=== PATIENT | female | born 1965 | race Caucasian/White ===

== ENCOUNTER 2023-10-25 12:03 | Outpatient (AMB) | payer OTHER, SELFPAY ==
--- NOTE | 2023-10-25 12:19 | HO.NEPHOV_ITS ---
Vital Signs 10/25/23 12:22 Height 5 ft 7 in Weight 316 lb 4 oz BMI 49.5 BP 110/74 Blood Pressure Location Lt brachial Position Sitting Pulse 65 Pulse Source Pulse Oximeter Pulse Oximetry (%) 97 Oxygen Delivery Method Room Air Intake Visit Reasons: Previous pt/ Conf Senior Controls Analyst Required: No Accompanied by: Self / Same As Patient Allergies No Known Allergies Allergy (Verified 10/25/23 10:13) HPI Comments Details: Yasmeen was in the office in follow-up of her hypertension. She has lost some weight. She has no edema now. She is obesity and is trying to lose weight by weight watchers. Her bilateral lower extremity swelling is under good control on bumetanide. 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 She had undergone surgery and radiation in the past. She recently had her losartan changed to olmesartan but had gone back losartan again. She has cut down salt in the food. She does not have any shortness of breath, orthopnea, paroxysmal nocturnal dyspnea, nausea, vomiting or diarrhea. There were no other systemic complaints at the time of this office visit. [facility] Medical History (Updated 10/25/23 @ 12:51 by Arnav Purcell MD) Hypertension Social History (Updated 10/25/23 @ 12:27 by Katina Wu MA) Alcohol intake: never Patient Tobacco Use Status: Never used Tobacco Review of Systems Const All systems reviewed & are unremarkable except as noted in HPI and below Physical Exam Vital Signs: Last Vital Signs Pulse 65 10/25/23 12:22 BP 110/74 10/25/23 12:22 Pulse Ox 97 10/25/23 12:22 Oxygen Delivery Method Room Air 10/25/23 12:22 BMI result Body Mass Index 49.5 Const General: comfortable and no acute distress Orientation/consciousness: patient oriented x3 HEENT Head: Yes normocephalic Mouth: Normal oral and palatal mucosa present Eyes EOM: EOMs intact bilaterally Neck Neck: Yes supple Resp Auscultation: clear to auscultation bilaterally Cardio Jugular venous distension: no JVD Rate: regular rate GI Palpation (GI): Soft to palpation Auscultation: normal bowel sounds General: Yes no CVA tenderness Back/Spine/Pelvis Back: no CVA tenderness Skin General skin exam: no rashes or lesions noted Neuro General: patient oriented x3 and moves all extremities Extrem General: Yes no pedal edema Results Reviewed Nephrology Results: No Data to Display Assessment & Plan Assessment & Plan (1) Hypertension: Code(s): I10 - Essential (primary) hypertension Category: Medical Qualifiers: Hypertension type: primary hypertension Qualified Code(s): I10 - Essential (primary) hypertension Plan Yasmeen has longstanding hypertension. Her Blood pressure is currently well controlled on current medication regimen. She is a diabetic. Her last hemoglobin A1c was under 7. She has not known to have any proteinuria. Her volume status is optimal on current dose of diuretics. She did not tolerate Jardiance. Her recent electrolytes and renal functions are at baseline. She will benefit from more weight loss. I did not make any medication changes today. I encouraged her to maintain good hydration. She avoids nonsteroidal anti-inflammatories. Follow-up lab work ordered. Answered all questions. Medications refilled. Orders: Orders Blood Urea Nitrogen Today I10 - Essential (primary) hypertension Creatinine Today I10 - Essential (primary) hypertension Electrolytes Today I10 - Essential (primary) hypertension Calcium Today I10 - Essential (primary) hypertension Medications: New carvedilol 12.5 mg orally 3 tablets a day( Take on e tab AM and 2 tabs PM); 270 tabs 3RF losartan 100 mg PO DAILY 90 days 90 tabs 3RF Coding Level of Care Code Est Pt Level 4 (37906) Diagnoses Primary hypertension I10 Hypertension type: primary hypertension
[2023-10-25 12:22] VITALS: BP 110/74; PULSE 65; O2SAT 97; BMI 49.5
== END 2023-10-25 12:56 | disposition home or self-care (01) ==
PROVIDERS: PCP Family Medicine; Visit Provider Internal Medicine Nephrology
DX: I10 Essential (primary) hypertension (principal)
CPT/HCPCS: 99214

== ENCOUNTER → 2023-10-25 12:03 | Outpatient (BNVA) | payer OTHER, SELFPAY | PROVIDERS: PCP Family Medicine; Visit Provider Internal Medicine Nephrology ==

== ENCOUNTER 2024-07-10 13:19 | Outpatient (AMB) | payer OTHER, SELFPAY ==
--- NOTE | 2024-07-10 13:29 | HO.NEPHOV ---
Vital Signs 07/10/24 13:40 Height 5 ft 7 in Weight 294 lb 6 oz BMI 46.1 BP 130/70 Blood Pressure Location Lt brachial Position Sitting Pulse 54 Pulse Source Pulse Oximeter Pulse Oximetry (%) 97 Oxygen Delivery Method Room Air Intake Visit Reasons: 6 mon follow up-[facility] Game Manager Required: No Accompanied by: Self / Same As Patient Allergies No Known Allergies Allergy (Verified 07/10/24 13:42) HPI Comments Details: Yasmeen was in the office in follow-up of her hypertension. She has lost some weight. She has no edema now. She is obesity and is trying to lose weight by weight watchers. Her bilateral lower extremity swelling is under good control on bumetanide. 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 She had undergone surgery and radiation in the past. She recently had her losartan changed to olmesartan but had gone back losartan again. She has cut down salt in the food. She does not have any shortness of breath, orthopnea, paroxysmal nocturnal dyspnea, nausea, vomiting or diarrhea. There were no other systemic complaints at the time of this office visit. [facility] Medical History (Updated 02/21/24 @ 14:55 by Sabrina Carmona) Hypertension Social History (System 02/21/24 @ 14:55 by Sabrina Carmona) Alcohol intake: never Patient Tobacco Use Status: Never used Tobacco Review of Systems Const All systems reviewed & are unremarkable except as noted in HPI and below Physical Exam Const General: comfortable and no acute distress Orientation/consciousness: patient oriented x3 HEENT Head: Yes normocephalic Mouth: Normal oral and palatal mucosa present Eyes EOM: EOMs intact bilaterally Neck Neck: Yes supple Resp Auscultation: clear to auscultation bilaterally Cardio Jugular venous distension: no JVD Rate: regular rate GI Palpation (GI): Soft to palpation Auscultation: normal bowel sounds General: Yes no CVA tenderness Back/Spine/Pelvis Back: no CVA tenderness Skin General skin exam: no rashes or lesions noted Neuro General: patient oriented x3 and moves all extremities Extrem General: Yes no pedal edema Results Reviewed Nephrology Results: No Data to Display Assessment & Plan Assessment & Plan (1) Hypertension: Code(s): I10 - Essential (primary) hypertension Category: Medical Qualifiers: Hypertension type: primary hypertension Qualified Code(s): I10 - Essential (primary) hypertension Plan Yasmeen has longstanding hypertension. Her Blood pressure is currently well controlled on current medication regimen. She is a diabetic. Her last hemoglobin A1c was under 7. She has not known to have any proteinuria. Her volume status is optimal on current dose of diuretics. She did not tolerate Jardiance. Her recent electrolytes and renal functions are at baseline. She will benefit from more weight loss. I did not make any medication changes today. I encouraged her to maintain good hydration. She avoids nonsteroidal anti-inflammatories. Follow-up lab work ordered. Answered all questions. Orders: Orders Calcium Today I10 - Essential (primary) hypertension Electrolytes Today I10 - Essential (primary) hypertension Creatinine Today I10 - Essential (primary) hypertension Electrolytes 6 Months I10 - Essential (primary) hypertension Calcium 6 Months I10 - Essential (primary) hypertension Electrolytes 1 Year I10 - Essential (primary) hypertension Blood Urea Nitrogen 1 Year I10 - Essential (primary) hypertension Blood Urea Nitrogen Today I10 - Essential (primary) hypertension Blood Urea Nitrogen 6 Months I10 - Essential (primary) hypertension Creatinine 6 Months I10 - Essential (primary) hypertension Creatinine 1 Year I10 - Essential (primary) hypertension Coding Level of Care Code Est Pt Level 4 (96663) Diagnoses Primary hypertension I10 Hypertension type: primary hypertension
[2024-07-10 13:40] VITALS: BP 130/70; PULSE 54; O2SAT 97; BMI 46.1
--- OUTSIDE RECORDS SUMMARY | 2024-07-10 15:51 | XMS_ITS | Clinical Summary ---
Author Organization [facility] Address [address] [facility] [address] [place] [address] Phone Care Team Providers Care Medical Office Scheduler Name Role Phone Germán Conte DO Primary Care Provider [phone] Allergies No known active allergies Medications calcium carbonate-vitami n D 600-400 MG-UNIT per tablet Take 1 tablet by mouth 1 (one) time each day Active Multiple Vitamin (MULTIVITAMIN ADULT PO) Take 1 tablet by mouth 1 (one) time each day Active B Complex Vitamins (VITAMIN B COMPLEX PO) Take 1 tablet by mouth 1 (one) time each day Active Elastic Bandages & Supports (Medical Compression Stockings) misc 1 packet by Other route 9 Active omeprazole (PriLOSEC) [address] capsule Take 40 mg by mouth 1 (one) time each day Active alpha tocopherol (VITAMIN E) 400 units capsule Take 1 capsule by mouth 1 (one) time each day Active glipiZIDE (GLUCOTROL) 10 MG tablet Take 10 mg by mouth 2 (two) times a day before meals Active metFORMIN (GLUCOPHAGE) 500 MG tablet Take 500 mg by mouth 1 (one) time each day with breakfast 500mg Am and Pm Active carvedilol (COREG) 12.5 MG tablet 1 Tab {PO in Am and 2 tabs in PM 270 tablet 3 3 Active cholestyramine (QUESTRAN) 4 g packet 3 Active pancrelipase, Zin-Wanc-Imgj, (Creon) 27952-72400 units capsule 5 Active bumetanide (BUMEX) 2 MG tablet Take 2 mg by mouth in the morning and 2 mg in the evening. Am and PM . Active olmesartan (Benicar) 40 MG tablet Take 1 tablet (40 mg total) by mouth 1 (one) time each day 90 tablet 3 4 Active Active Problems Problem Noted Date Diagnosed Date Hypertension 10/11/2021 Type 2 diabetes mellitus 10/06/2021 Uncontrolled type 2 diabetes mellitus 10/06/2021 Overview (02/12/2024): Replacing diagnoses that were inactivated after the 02/12/24 Regulatory Import Edema 10/01/2020 Essential hypertension 10/01/2020 Resolved Problems Problem Noted Date Diagnosed Date Resolved Date Anxiety 10/06/2021 10/06/2021 Left ventricular hypertrophy 10/06/2021 10/06/2021 Pancreatic insufficiency 10/06/2021 Severe obesity 10/06/2021 10/06/2021 Edema of lower extremity 10/01/2020 Migraine 10/01/2020 10/04/2020 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 Immunizations Name Administration Dates Next Due Influenza, Unspecified 02/19/2020 Pfizer SARS-COV-2 01/08/2021,06/06/2020,05/16/19 21 Family History Medical History Relation Comments Heart disease Mother Hypertension Mother Heart disease Sibling Relation Status Comments Father Mother Alive Sibling Social History Tobacco Use Types Packs/Day Years Used Date Smoking Tobacco: Never Smokeless Tobacco: Never Tobacco Cessation:Counseling Given: Not Answered Alcohol Use Standard Drinks/Week Comments No 0 (1 standard drink = 0.6 oz pur e alcohol) Comments Unknown Sex and Gender Information Value Date Recorded Sex Assigned at Not on file Legal Sex Female 4:51 PM EST Gender Identity Not on file Sexual Orientation Not on file Last Filed Vital Signs Vital Sign Reading Time Taken Comments Blood Pressure 138/70 05/28/2023 4:05 PM EST Pulse 60 05/28/2023 4:05 PM EST Temperature - - Respiratory Rate - - Oxygen Saturation 97% 05/28/2023 4:05 PM EST Inhaled Oxygen Concentration - - Weight 144 kg (317 lb) 05/28/2023 4:05 PM EST Height 170.2 cm (5' 7 ) 09/01/2019 12:00 PM EDT Body Mass Index 49.65 09/01/2019 12:00 PM EDT Plan of Treatment Health Maintenance Due Date Last Done Comments Breast Cancer Screening 1964 Pneumococcal Vaccine: Pediatrics (0 to 5 Years) and At-Risk Patients (6 to 64 Years) (1 of 2 - PCV) 1970 Colorectal Cancer Screening: Annual FOBT 2013 Colorectal Cancer Screening: Colonoscopy 2013 Colorectal Cancer Screening: Sigmoidoscopy 2013 Diabetes: Hemoglobin A1C 08/25/2021 02/04/2019 Diabetes: Ophthalmology Exam 08/25/2021 Diabetes: Pedal Pulse Checked 08/25/2021 Diabetes: Sensory Foot Exam 08/25/2021 Diabetes: Visual Foot Exam 08/25/2021 Influenza Vaccine (#1) 2024 2, 02/17/2021, 02/19/2020, Additional history exists Hepatitis B Vaccine Aged Out No longe r eligible based on patient's age to complete this topic Procedures Procedure Name Priority Date/Time Associated Diagnosis Comments BLOOD PANEL (HC) Routine 02/04/2019 12:0 0 AM EDT from Last 3 Months or Most Recently Relevant to Health Maintenance Results * (ABNORMAL) Blood Panel (02/04/2019 12:00 AM EDT) Creatinine 0.8 0.70 - 1.30 mg/dl [facility] Hemoglobin A1C 6.7(H) <5 % [facility] BUN 16 9 - 20 mg/dl [facility] eGFR Non- 84 >60 ml/min [facility] Cholesterol 166 <200 mg/dl [facility] LDL,Direct 79 <130 mg/dl [facility] Hematocrit 42.7 38 - 50 % [facility] Sodium 142 137 - 145 mmol/L [facility] Carbon Dioxide (CO2) 29 22 - 30 mmol/L [facility] eGFR 97 >60 ml/min [facility] Hgb 13.7 13.0 - 16.5 g/dl [facility] Platelets 255 140 - 440 k/uL [facility] Potassium 4.3 3.5 - 5.1 mmol/L [facility] Calcium 9.6 8.4 - 10.2 mg/dl [facility] Triglycerides 195(H) <150 mg/dl [facility] HDL 48 >40 mg/dl [facility] 02/04/2019 us [facility] [id number] LICITED RESULTS Final Result [facility] from Last 3 Months or Most Recently Relevant to Health Maintenance Insurance AETNA AET[employer] Care Teams Medical Office Scheduler Relationship Specialty Start Date End Date Germán Conte DO [address] [place] [address] PCP - General 05/24/20
--- OUTSIDE RECORDS SUMMARY | 2024-07-10 15:51 | XMS_ITS | Encounter Summary ---
Author Organization [facility] Address [address] [place] [address] Care Team Providers Care Model Maker Fiberglass Name Role Phone Germán Conte MD Primary Care Provider Encounter Details Date Type Department Care Team (Late st Contact Info) Description 12/09/2020 Scanned Document [facility] Radiation Oncology [address] [place] [address] Provider, MD Amanda [address] [place] [address] Social History Tobacco Use Types Packs/Day Years Used Date Smoking Tobacco: Former Cigarettes Q uit: 1988 Smokeless Tobacco: Never Alcohol Use Standard Drinks/Week Comments Yes 0 (1 standard drink = 0.6 oz pur e alcohol) 1x/month Sex and Gender Information Value Date Recorded Sex Assigned at Not on file Gender Identity Not on file Sexual Orientation Not on file documented as of this encounter Plan of Treatment Not on file documented as of this encounter Visit Diagnoses Not on filedocumented in this encounter Care Teams Model Maker Fiberglass Relationship Specialty Start Date End Date Germán Conte MD [address] [place] [address] PCP - General Psychiatry, General 08/13/18 documented as of this encounter
--- OUTSIDE RECORDS SUMMARY | 2024-07-10 15:51 | XMS_ITS | Patient Health Record ---
Author Organization [facility] Address [address] [facility] [address] [address] [place] [address] Support Name Relationship Address Phone YENYSALVATORE ALCOCER Guarantor Unknown [phone] Reason For Referral No Information Medications Medication SIG (Take, Route, Frequency, Duration) Notes Start Date End Date Status Norvasc 5MG 1 ORAL daily for -3 [facility]- 12/04/2011 Active Losartan Potassium-HCTZ 100/25MG 1 ORAL daily for -3 [facility]- 07/25/2011 Active amLODIPine Besylate 5MG 1 ORAL daily for -3 [facility]- 2011 Active Problems Problem Type SNOMED Code ICD Code Onset Dates Problem Status W/U Status Risk Notes Problem Obesity (380551396) Obesity, unspecified (278.00) Active confirmed Major Problem Anxiety state (938873787) Anxiety state, unspecified (300.00) Active confirmed Major Problem Benign essential hypertension (0076495) Essential hypertension, benign (401.1) Active confirmed Major Problem Essential hypertension (90675319) Unspecified essential hypertension (401.9) Active confirmed Major Problem Cervicalgia (11322687) Cervicalgia (723.1) Active confirmed Diag Problem Abnormal glucose level (954518116) Other abnormal glucose (790.29) Active confirmed Diag Plan Of Treatment No Information Insurance Providers Payer Name Payer Address Payer Phone Subscriber Number Group Number Insured Name Patient Relationship to Insured Coverage Start Date Coverage End Date [facility] MEDIC[facility] PPO [address] [place] [address] [phone] [id number] SALVATORE SAINI Self - patient is the insured
--- OUTSIDE RECORDS SUMMARY | 2024-07-10 15:51 | XMS_ITS | Encounter Summary ---
Author Organization [facility] Address [address] [place] [address] Care Team Providers Care Tandem Mill Operator Name Role Phone Germán Conte MD Primary Care Provider [phone] Encounter Details Date Type Department Care Team (Late st Contact Info) Description 06/10/2019 Scanned Document [facility] Surgical Oncology [place] [address] [facility] [address] [place] [address] Gregorio Parikh MD [address] [facility] [address] [place] [address] Social History Tobacco Use Types Packs/Day Years [...] on filedocumented in this encounter Care Teams Tandem Mill Operator Relationship Specialty Start Date End Date Germán Conte MD [address] [place] [address] PCP - General Psychiatry, General 08/13/18 documented as of this encounter
--- OUTSIDE RECORDS SUMMARY | 2024-07-10 15:51 | XMS_ITS | Continuity of Care Document ---
Author Organization [place] - [facility], [facility] Address [address] [place] [address] Care Team Providers Care Division Toll Wire Chief Name Role Phone SHEY PRABHAKAR Primary Care Provider [phone] Assessment Encounter Date Assessment Date Assessment LastModified by Organization Details LastModified Time 06/27/2024 06/27/2024 No evidence of disease on examination today. Fiberoptic examination of nasopharynx, hypopharynx and larynx was stable. Cancer surveillance in 12 months was recommended. [email or web address] Not available 06/26/2024 16:12:03 Plan of Treatment Reminders Order Date Submit Date Provider Last Modified By Organization Details Last Modified Time Details Appointments Establish ed 15 2024 09:15A Hank MOREAU MD Not available Not available Not available Lab None recorded. Referral None recorded. Procedures None recorded. Surgeries None recorded. Imaging None recorded. Medication Orders nystatin 100,000 unit/mL oral suspensio n 2024 025 [facility]/Pharmacy #[id number], [address] [place], [address], 06/27/2024 09:45:04 Patient TargetsNo targets recorded. Patient InstructionsNo instructions recorded. Reason for Referral None Reported. 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 Parekh and Dr. Gonzáles. NELLIE MOREAU MD [address] [address], [place], [address] , [place] - [facility] 4 15:45:32 Primary malignant neoplasm of major salivary gland 20784466 Active 2018 Malignant neoplasm of salivary gland (major) NOS; Note: Date Diagnosed: 04/03/2019 2:25 PM (C08.9) Not Available [facility] 4 03:20:03 Follow-up visit Active 2019 Encounter for follow-up examinatio n after completed treatment for malignant neoplasm; Note: Date Diagnosed: 10/21/2019 12:14 PM (Z08) Not Available [facility] 4 03:20:03 Acute tonsillit is 43995510 Active 2022 Acute tonsilliti s, unspecifie d; Note: Date Diagnosed: 03/15/2023 9:24 AM (J03.90) Not Available [facility] 4 03:20:03 Stomatiti s 67117221 Active 2019 Oral thrush; Note: Date Diagnosed: 08/06/2019 2:29 PM (B37.0) Not Available [facility] 4 03:20:02 Candidias is of mouth 53462829 Active 2019 Oral thrush; Note: Date Diagnosed: 08/06/2019 2:29 PM (B37.0) Not Available [facility] 4 03:20:03 Dysphagia 12858720 Active 2022 Dysphagia, unspecifie d; Note: Date Diagnosed: 03/15/2023 9:24 AM (R13.10) Not Available [facility] 4 03:20:03 Problem Notes None recorded. Procedures Surgical History Date Name Laterality Status Provider Name and Address Organization Details Recorded Time 06/27/2024 FOL_DP completed NELLIE MOREAU MD [address] [facility],[address] [address], [place], [address], [facility] - [facility] 06/26/2024 16:11:58 11/23/2023 FOL_DP completed NELLIE MOREAU MD [address] [place] [address], [address], [facility] - [facility] 11/19/2023 15:48:38 Imaging Results None recorded. Procedure Notes None recorded. Medical Equipment None Reported. Medications Name Sig Start Date Stop Date Status Note LastModified by Organization Details LastModified Time celecoxib 200 mg capsule TAKE 1 CAPSULE BY MOUTH TWICE A DAY FOR 90 DAYS active Not Available Not Available No t Available furosemid e 40 mg tablet 10/21 completed Medicati on ID: [id number] D uration Value: 90 Brand Name: lorna robertson Send Method: E-Prescr ibed Sub s Allowed: subs OK Speci al Instruct ion: TAKE 2 TABLETS BY MOUTH TWICE A DAY Medi cationGe nericNam e: furosemi de Not Available Not Available Not Available fluconazo le 100 mg tablet TAKE 1 TABLET BY MOUTH EVERY DAY active Not Available Not Available No t Available metformin 500 mg tablet TAKE 1 TABLET TWICE A DAY active Not Available Not Available No t Available nystatin 100,000 unit/mL oral suspensio n TAKE 5 ML 4 TIMES A DAY BY ORAL ROUTE FOR 14 DAYS, FOR THRUSH. active Not Available Not Available No t Available carvedilo l 12.5 mg tablet TAKE 1 TABLET BY MOUTH IN THE MORNING AND 2 TABLETS IN THE EVENING active Not Available Not Available No t Available bumetanid e 2 mg tablet TAKE 1 TABLET BY MOUTH TWICE A DAY active Not Available Not Available No t Available glipizide 10 mg tablet TAKE 1 TABLET TWICE A DAY active Not Available Not Available No t Available potassium chloride ER 10 mEq tablet,ex tended release TAKE 1 TABLET (10 MEQ TOTAL) BY MOUTH 1 (ONE) TIME EACH DAY DO NOT CRUSH, CHEW, OR SPLIT. active Not Available Not Available No t Available omeprazol e 40 mg capsule,d elayed release TAKE 1 CAPSULE EVERY MORNING 30 MINUTES BEFORE BREAKFAS T active Not Available Not Available No t Available amoxicill in 500 mg tablet TAKE 1 TABLET BY MOUTH THREE TIMES A DAY NEEDED active Not Available Not Available No t Available meloxicam 7.5 mg tablet TAKE 1 TABLET EVERY DAY BY ORAL ROUTE WITH MEAL(S) FOR 30 DAYS. active Not Available Not Available No t Available lidocaine 5 % topical patch APPLY 1 PATCH BY TOPICAL ROUTE ONCE DAILY (MAY WEAR UP TO 12HOURS. ) active Not Available Not Available No t Available gabapenti n 300 mg capsule 10/21 completed Medicati on ID: [id number] D uration Value: 30 Brand Name: gabapent in Send Method: E-Prescr ibed Sub s Allowed: subs OK Medic ationGen ericName : gabapent in Not Available Not Available Not Available nystatin 100,000 unit/gram topical powder APPLY TO AFFECTED AREA TWICE A DAY active Not Available Not Available No t Available methylpre dnisolone 4 mg tablets in a dose pack TAKE 6 TABLETS ON DAY 1 DIRECTED ON PACKAGE AND DECREASE BY 1 TAB EACH DAY FOR A TOTAL OF 6 DAYS active Not Available Not Available No t Available celecoxib 100 mg capsule TAKE 1 CAPSULE BY MOUTH TWICE A DAY FOR 30 DAYS active Not Available Not Available No t Available losartan 100 mg tablet TAKE 1 TABLET BY MOUTH EVERY DAY active Not Available Not Available No t Available oxycodone 5 mg tablet 10/21 completed Medicati on ID: [id number] D uration Value: 2 Brand Name: oxycodon e Send Method: E-Prescr ibed Sub s Allowed: subs OK Medic ationGen ericName : oxycodon e Not Available Not Available Not Available olmesarta n 40 mg tablet active Not Available Not Available Not Available cholestyr amine (with sugar) 4 gram powder for susp in a packet active Not Available Not Available Not Available Vitamin C 10/21 completed Medicati on ID: [id number] B rand Name: vitamin c Send Method: E-Prescr ibed Sub s Allowed: subs OK Medic ationGen ericName : vitamin c Not Available Not Available Not Available vitamin E 10/21 completed Medicati on ID: [id number] B rand Name: vitamin e Send Method: E-Prescr ibed Sub s Allowed: subs OK Medic ationGen ericName : vitamin e Not Available Not Available Not Available vitamin B complex 10/21 completed Medicati on ID: [id number] B rand Name: vitamin b complex Send Method: E-Prescr ibed Sub s Allowed: subs OK Medic ationGen ericName : vitamin b complex Not Available Not Available Not Available Fish Oil 10/21 completed Medicati on ID: [id number] B rand Name: fish oil Send Method: E-Prescr ibed Sub s Allowed: subs OK Medic ationGen ericName : fish oil Not Available Not Available Not Available multivita min 10/21 completed Medicati on ID: [id number] B rand Name: multivit lisette Sen d Method: E-Prescr ibed Sub s Allowed: subs OK Medic ationGen ericName : multivit knox Not Available Not Available Not Available Cholestyr amine Light 4 gram oral powder 4 GM BY MOUTH 2 TIMES A DAY active Not Available Not Available No t Available Creon 24,000-76 ,000-120, 000 unit capsule,d elayed release TAKE 3 CAPSULES BY MOUTH 4 TIMES A DAY,X90 DAYS active Not Available Not Available No t Available Accu-Chek Guide test strips TEST 2 TIMES A DAY DX: E11.9 active Not Available Not Available No t Available Dexcom G6 Transmitt er device active Not Available Not Available No t Available Dexcom G7 Blood Bank Worker active Not Available Not Available Not Available Dexcom G7 Sensor device USE ONE SENSOR TO SKIN EVERY 10 DAYS active Not Available Not Available No t Available Vitals Date Recorded Body height Body mass index (BMI) Body weight Provider Name and Address Organization Details Last Updated DateTime 06/27/2024 170.18 cm 56.4 kg/m2 841106.25 g Shana Orourke [place] - [facility] 06/27/2024 09:17:43 Social History None recorded. Functional Status None recorded. Mental Status None recorded. Family History Nothing Reported. Medical History No medical history recorded. Gynecological HistoryNo gynecological history recorded. Obstetrics History GPAL:G 0 P 0 0 0 0 Past Encounters Encounter ID Performer Location Encounter Start Date Encounter Closed Date Diagnosis/Indication Diagnosis SNOMED-CT Code Diagnosis ICD10 Code Diagnosis Note [id number] NELLIE MOREAU MD [facility] [address] [place] [address] 06/27/2024 09:14:19 06/27/2024 09:47:34 History of malignant neoplasm of oral cavity 400802967 Z85.819 Candidiasis of mouth 797 13943 B37.0 burning tongue may represent thrush vs sensitivit y to oral hygiene product although she does not recall any changes. risk factor of radiation and diabetes. possibilit y of glossitis is also considered . trial of nystatin Health Concerns Section Related Observation LastModified by Organization Cora chun LastModified Time None Recorded Concern Status LastModified by Organization Details LastModified Time None Recorded Payers Encounter Date Sequence Insurance Name Policy Number Policy Tong Covered Member ID Tong Member ID Guarantor Name 06/27/2024 1 [employer] - CHOICE (POS II) [id number] Segundo Rodriguez [id number] Yasmeen Rodriguez Notes Date Note Type Note Provider Name and Address Organization Details Recorded Time 06/27/2024 text/html Primary tumor location: right minor salivary gland junction of soft and hard palateTumor staging: T1N0 low grade mucoepidermoid carcinomaTreatment: Resection in [place] with positive margin and radiationDate of treatment completion: 09/17/18 and 01/01/19Oncology team: Dr. Parekh and Dr. Gonzáles. ba swallow 08/15/23 - mod reflux and non occlusive esophageal webmet with GI at [facility] for UGI and dilation, has f/u in 03/06 new sx of burning tongue sensation center dorsum since [place] relief with ice or sugar free lozengertaste is normalchronic dry mouthdiabetes is well under control, weight loss with diet NELLIE MOREAU MD [address] [place] [address], [place], [address], [place] - [facility] 06/27/2024 09:47:18 OBGyn Episode No OBEpisode recorded.
--- OUTSIDE RECORDS SUMMARY | 2024-07-10 15:51 | XMS_ITS | Data Portability ---
Author Organization [place] - [facility], Allergy Address [address] [address] Care Team Providers Care Filament Shaper Name Role Phone SHEY PRABHAKAR Primary Care Provider Assessment Encounter Date Assessment Date Assessment LastModified by Organization Details LastModified Time 11/23/2023 11/23/2023 No evidence of disease on examination today. Fiberoptic examination of nasopharynx, hypopharynx and larynx was stable. Cancer surveillance in 12 months was recommended. [email or web address] Not available 11/19/2023 15:48:51 06/27/2024 06/27/2024 No evidence of disease on examination today. Fiberoptic examination of nasopharynx, hypopharynx and larynx was stable. Cancer surveillance in 12 months was recommended. [email or web address] Not available 06/26/2024 16:12:03 Plan of Treatment Reminders Order Date Submit Date Provider Last Modified By Organization Details Last Modified Time Details Appointments Establish ed 15 2024 09:15A M NELLIE MOREAU MD Not available Not available Not available Lab None recorded. Referral None recorded. Procedures None recorded. Surgeries None recorded. Imaging None recorded. Medication Orders nystatin 100,000 unit/mL oral suspensio n 2024 025 [facility]/Pharmacy #[id number], [address] [place], [address], 06/27/2024 09:45:04 Patient TargetsNo targets recorded. Patient InstructionsNo instructions recorded. Reason for Referral None Reported. Results Created Date Observation Date Name Description Value Unit Range Abnormal Flag Note LastModifiedBy Organization Detail LastModifiedTime 01/03/20 24 08/15/2023 imagi ng/di agnos tic resul t No observ ation record ed. [email or web address] Not Available 20:06:53 01/03/20 24 08/15/2023 imagi ng/di agnos tic resul t No observ ation record ed. [email or web address] Not Available 20:06:55 01/03/20 24 08/23/2018 imagi ng/di agnos tic resul t No observ ation record ed. [email or web address] Not Available 20:07:00 01/03/20 24 08/23/2018 imagi ng/di agnos tic resul t No observ ation record ed. [email or web address] Not Available 20:07:05 Result Notes None recorded. 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 Parekh and Dr. Gonzáles. NELLIE MOREAU MD [address] [place] [address], [phone] , [facility] 4 15:45:32 Primary malignant neoplasm of major salivary gland 32214084 Active 2018 Malignant neoplasm of salivary gland (major) NOS; Note: Date Diagnosed: 04/03/2019 2:25 PM (C08.9) Not Available [facility] 4 03:20:03 Follow-up visit Active 2019 Encounter for follow-up examinatio n after completed treatment for malignant neoplasm; Note: Date Diagnosed: 10/21/2019 12:14 PM (Z08) Not Available [facility] 4 03:20:03 Acute tonsillit is 13589157 Active 2022 Acute tonsilliti s, unspecifie d; Note: Date Diagnosed: 03/15/2023 9:24 AM (J03.90) Not Available [facility] 4 03:20:03 Stomatiti s 25349273 Active 2019 Oral thrush; Note: Date Diagnosed: 08/06/2019 2:29 PM (B37.0) Not Available [facility] 4 03:20:02 Candidias is of mouth 37995406 Active 2019 Oral thrush; Note: Date Diagnosed: 08/06/2019 2:29 PM (B37.0) Not Available [facility] 4 03:20:03 Dysphagia 41060957 Active 2022 Dysphagia, unspecifie d; Note: Date Diagnosed: 03/15/2023 9:24 AM (R13.10) Not Available [facility] 4 03:20:03 Problem Notes None recorded. Procedures Surgical History Date Name Laterality Status Provider Name and Address Organization Details Recorded Time 06/27/2024 FOL_DP completed NELLIE MOREAU MD [address] [place] [address], [address], [place] - [facility] 06/26/2024 16:11:58 11/23/2023 FOL_DP completed NELLIE MOREAU MD [address] [place] [address], [address], [place] - [facility] 11/19/2023 15:48:38 Imaging Results Imaging Date Name Status LastModified by Organiz ation Details LastModified Time 08/15/2023 imaging/diag nostic result completed Information not available 01/03/2024 20:06:53 08/15/2023 imaging/diag nostic result completed Information not available 01/03/2024 20:06:55 08/23/2018 imaging/diag nostic result completed Information not available 01/03/2024 20:07:00 08/23/2018 imaging/diag nostic result completed Information not available 01/03/2024 20:07:05 Procedure Notes None recorded. Medical Equipment None Reported. Medications Name Sig Start Date Stop Date Status Note LastModified by Organization Details LastModified Time celecoxib 200 mg capsule TAKE 1 CAPSULE BY MOUTH TWICE A DAY FOR 90 DAYS active Not Available Not Available No t Available furosemid e 40 mg tablet 10/21 completed Medicati on ID: [id number] D uration Value: 90 Brand Name: lorna [...] mg capsule 10/21 completed Medicati on ID: [id number] D uration Value: 30 Brand Name: gabapent [...] mg tablet 10/21 completed Medicati on ID: [id number] D uration Value: 2 Brand Name: oxycodon [...] Vitamin C 10/21 completed Medicati on ID: [id number] B rand Name: vitamin c Send Method: E-Prescr ibed Sub s Allowed: subs OK Medic ationGen ericName : vitamin c Not Available Not Available Not Available vitamin E 10/21 completed Medicati on ID: [id number] B rand Name: vitamin e Send Method: E-Prescr ibed Sub s Allowed: subs OK Medic ationGen ericName : vitamin e Not Available Not Available Not Available vitamin B complex 10/21 completed Medicati on ID: [id number] B rand Name: vitamin b complex Send Method: E-Prescr ibed Sub s Allowed: subs OK Medic ationGen ericName : vitamin b complex Not Available Not Available Not Available Fish Oil 10/21 completed Medicati on ID: [id number] B rand Name: fish oil Send Method: E-Prescr ibed Sub s Allowed: subs OK Medic ationGen ericName : fish oil Not Available Not Available Not Available multivita min 10/21 completed Medicati on ID: [id number] B rand Name: multivit knox Sen d Method: E-Prescr ibed Sub s [...] Not Available No t Available Dexcom G7 Aviation Support Equipment Repairer active Not Available Not Available Not Available Dexcom G7 Sensor device USE ONE SENSOR TO SKIN EVERY 10 DAYS active Not Available Not Available No t Available Vitals Date Recorded Body height Body mass index (BMI) Body weight Provider Name and Address Organization Details Last Updated DateTime 11/23/2023 170.18 cm 56.4 kg/m2 114397.25 g Cecily Mccauley [facility] 11/23/2023 10:50:04 Date Recorded Body height Body mass index (BMI) Body weight Provider Name and Address Organization Details Last Updated DateTime 06/27/2024 170.18 cm 56.4 kg/m2 149578.25 g Shana Orourke [facility] 06/27/2024 09:17:43 Social History None recorded. Functional Status None recorded. Mental Status None recorded. Family History Nothing Reported. Medical History No medical history recorded. Gynecological HistoryNo gynecological history recorded. Obstetrics History GPAL:G 0 P 0 0 0 0 Past Encounters Encounter ID Performer Location Encounter Start Date Encounter Closed Date Diagnosis/Indication Diagnosis SNOMED-CT Code Diagnosis ICD10 Code Diagnosis Note [id number] NELLIE MOREAU MD [facility] [address] [address] 11/23/2023 10:27:24 11/23/2023 11:07:26 History of malignant neoplasm of oral cavity 329125559 Z85.819 [id number] NELLIE MOREAU MD [facility] [address] [address] 06/27/2024 09:14:19 06/27/2024 09:47:34 History of malignant neoplasm of oral cavity 211599561 Z85.819 Candidiasis of mouth 797 66522 B37.0 burning tongue may represent thrush vs sensitivit y to oral hygiene product although she does not recall any changes. risk factor of radiation and diabetes. possibilit y of glossitis is also considered . trial of nystatin Health Concerns Section Related Observation LastModified by Organization Detai ls LastModified Time None Recorded Concern Status LastModified by Organization Details LastModified Time None Recorded Advance Directives Directive None Recorded Payers Encounter Date Sequence Insurance Name Policy Number Policy Tong Covered Member ID Tong Member ID Guarantor Name 11/23/2023 1 [employer] - CHOICE (POS II) [id number] Segundo Rodriguez [id number] Yasmeen Milanhalluz 06/27/2024 1 [employer] - CHOICE (POS II) [id number] Segundo Whitee [id number] Yasmeen Rodriguez Notes Date Note Type Note Provider Name and Address Organization Details Recorded Time 11/23/2023 text/html cancer surveilla nce Right hard palate minor salivary gland 2019 ba swallow 08/15/23 - mod reflux and non occlusive esophageal webmet with GI at [facility] for UGI and dilation, has f/u in 03/06 NELLIE MOREAU MD [address] [facility],[address], [address], [place] - [facility] 11/23/2023 11:05:56 06/27/2024 text/html Primary tumor location: right minor salivary gland junction of soft and hard palateTumor staging: T1N0 low grade mucoepidermoid carcinomaTreatment: [place]ection in [place] with positive margin and radiationDate of treatment completion: 09/17/18 and 01/01/19Oncology team: Dr. Parekh and Dr. Gonzáles. ba swallow 08/15/23 - mod reflux and non occlusive esophageal webmet with GI at [facility] for UGI and dilation, has f/u in 03/06 new sx of burning tongue sensation center dorsum since [place] relief with ice or sugar free lozengertaste is normalchronic dry mouthdiabetes is well under control, weight loss with diet NELLIE MOREAU MD 100 [facility],[address], [place], [address], [place] - [facility] 06/27/2024 09:47:18 OBGyn Episode No OBEpisode recorded.
--- OUTSIDE RECORDS SUMMARY | 2024-07-10 15:51 | XMS_ITS | Clinical Summary ---
Author Organization [facility] Address [address] [place] [address] Care Team Providers Care Freight Rate Analyst Name Role Phone Germán Conte MD Primary Care Provider [phone] Allergies No known active allergies Medications Medication Sig Dispensed Refills Start Date End Date Status vitamin E (E-400) 400 UNIT capsule Take by mouth. Acti ve SUMAtriptan (IMITREX) 50 MG tablet TAKE 1 TAB NEEDED FOR MIGRAINE WITH PLENTY OF WATER, MAY REPEAT IN 2 HOURS IF NEEDED. MAX 3/24 HR 0 05/13/2018 Active pancrelipase (CREON) 97985-[address] Particles 12/19/2014 Active omega-3 fatty acids (FISH OIL) 1000 MG Capsule Delayed Release delayed release capsule Take by mouth. Activ e ascorbic acid (VITAMIN C) 500 MG tablet Take 1,000 mg by mouth. Active B Complex-Folic Acid (B COMPLEX FORMULA 1) Tab Take 1 tablet by mouth. Active ACCU-CHEK GUIDE test strip 05/17/2018 Active ACCU-CHEK FASTCLIX LANCETS Misc 05/17/2018 Active losartan (COZAAR) 100 MG tablet Take 100 mg by mouth. 12/20/2014 Active carvedilol (COREG) 12.5 MG tabletIndications:Ca ncer of hard palate (HCC) Take 1 tablet (12.5 mg total) by mouth every morning. Do not start before September 18, 2018. 30 tablet 09/18/2018 Active furosemide (LASIX) 80 MG tabletIndications:Ca ncer of hard palate (HCC) Take 1 tablet (80 mg total) by mouth 2 (two) times a day. 60 tablet 09/17/2018 Active glimepiride (AMARYL) 4 MG tabletIndications:Ca ncer of hard palate (HCC) Take 1 tablet (4 mg total) by mouth every morning with breakfast. Do not start before September 18, 2018. 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 Social History Tobacco Use Types Packs/Day Years [...] Sign Reading Time Taken Comments Blood Pressure 132/60 09/17/2018 4:15 PM EDT Pulse 77 09/17/2018 4:15 PM EDT Temperature 36.4 ??C (97.6 ??F) 09/17/2018 4:15 PM ED T Respiratory Rate 18 09/17/2018 4:15 PM EDT Oxygen Saturation 94% 09/17/2018 4:15 PM EDT Inhaled Oxygen Concentration - - Weight - - Height - - Body Mass Index - - Plan of Treatment Health Maintenance Due Date Last Done Comments Hepatitis C Virus Screening 1964 Pneumococcal Vaccine: Pediatric (0-5 Years) and At-Risk Patients (6 to 49 Years) (1 of 2 - PCV) 1970 HIV Screening 1977 DTaP/Tdap/Td Vaccines (1 - Tdap) 1983 Pneumococcal Vaccines 50+ (1 of 2 - PCV) 1983 Zoster (Shingles) Vaccine (1 of 2) 1983 Pap Smear (Ages 21-65) 1985 Mammogram 2004 Colonoscopy 2009 Influenza Vaccine 12/13/2023 02/13/2022, , 02/19/2020, Additional history exists COVID-19 Vaccine ( - 2023- season) 2024 01/08/2021, 06/06/2020, 05/16/2020 RSV Vaccine 60 years and older and Patients (1 - Risk 60-74 years 1-dose series) 2024 Hepatitis B Vaccines Aged Out No long er eligible based on patient's age to complete this topic Advance Directives * Full Code (Latest Code Status on File) Date Activated Date Inactivated Comments 09/17/2018 2:04 PM * Full Code Date Activated Date Inactivated Comments 09/17/2018 8:09 AM 09/17/2018 2:04 PM Care Teams Freight Rate Analyst Relationship Specialty Start Date End Date Germán Conte MD [address] [place] [address] PCP - General Psychiatry, General 08/13/18
--- OUTSIDE RECORDS SUMMARY | 2024-07-10 15:51 | XMS_ITS | Encounter Summary ---
Author Organization [facility] Address [address] [place] [address] Care Team Providers Care Improvement Lead Name Role Phone Germán Conte MD Primary Care Provider [phone] Encounter Details Date Type Department Care Team (Late st Contact Info) Description 12/16/2018 Scanned Document [facility] RAD ONC SCAN Provider, Amanda, [address] [place] [address] Social History Tobacco Use Types Packs/Day Years [...] on filedocumented in this encounter Care Teams Improvement Lead Relationship Specialty Start Date End Date Germán Conte MD [address] [place] [address] PCP - General Psychiatry, General 08/13/18 documented as of this encounter
--- OUTSIDE RECORDS SUMMARY | 2024-07-10 15:51 | XMS_ITS | Continuity of Care Document ---
Author Organization [facility] [address] [place] [address] Phone [phone] Care Team Providers Care Process Designer Name Role Phone Germán Conte M.D. Care Team Information Receiv er [phone] Problems Active Problems Provider Date Type 2 diabetes mellitus Freddy Kat M.D. Onset: 10/02/2022 Gallstone pancreatitis Freddy Kat M.D. O nset: 10/02/2022 History of malignant neoplasm of larynx Freddy Cunningham M.D. Onset: 04/09/2023 Social History Type Date Description Comments Sex Unknown Tobacco Use Start: Unknown End: Unknown Quit ETOH Use Rarely consumes alcohol Tobacco Use Start: Unknown End: Unknown Patient is a former smoker Smoking Status Reviewed: 10/02/22 Patient is a former smoker Allergies and adverse reactions Description No Known Drug Allergies Medications Active Medications SIG Qnty Indications Order ing Provider Date Dexcom G7 ReceiverDevice use for sugar reading dx e11.9 1units E11.9 Freddy Kat M.D. 04/12/2023 Dexcom G7 SensorMisc one to skin every 10 days dx e11.9 9units E11.9 Freddy Kat M.D. 04/12/2023 Accu-Chek GuideStrips test 2 times a day dx: e11.9 150units E11.9 Freddy Kat M.D. 11/09/2022 Rpbgbwlxy67mg Tablets Take 1 Tablet Twice A Day 180tabs Freddy Kat M.D. 04/24/2022 Metformin [id number] Tablets Take 1 Tablet By Mouth Twice A Day 180tabs Freddy Kat M.D. 12/08/2021 Potassium Chloride HI71Jvr Tablets ER Take 1 Tablet (10 Meq Total) By Mouth 1 (One) Time Each Day DO Not Crush, Arnav Sawyer Daniel MD [id number] Caps DR Part Take 3 Capsules By Mouth 4 Times A Day Unknown Ivlkssrfyb66.5mg Tablets Take 1 Tab By Mouth In The Morning And 2 Tablets In The Evening. Unknown Uziccwkcqq71wr Capsules DR Take 1 Capsule By Mouth Daily Every Morning X90 Days. Take 30Min Before Breakfas Unknown Tudeekvojx5nm Tablets Take 1 Tablet (2 MG Total) By Mouth In The Morning And 1 Tablet (2 MG Total) In Binh José MD Losartan Kaiggrwjr161ir Tablets Take 1 Tablet By Mouth 1 Time Each Day. Binh José MD Vital Signs Date Vital Result Comment 01/21/2024 8:56am BP Systolic 124 mmHg BP Diastolic 76 mmHg Heart Rate 72 /min Height 67 inches 5'7 Weight 315.12 lb BMI (Body Mass Index) 49.4 kg/m2 Results Test Acquired Date Facility Test Result H/L Range Note Laboratory test finding 01/21/2024 Inhouse Hemoglobin A1c 6.4% Glucose Fingerstick 118 Laboratory test finding 09/17/2023 Inhouse Glucose Fingerstick 107 Laboratory test finding 04/09/2023 Inhouse Hemoglobin A1c 6.5% Glucose Fingerstick 153 Comprehensive Metabolic Panl 12/29/2022 [facility] Glucose 159 mg/dL High (70-99) BUN 20 mg/dL (6-20) Creatinine 1.0 mg/dL (0.5-1.0 ) Sodium 139 mmol/L (133-145 ) Potassium 4.7 mmol/L (3.6-5.2 ) Chloride 98 mmol/L (98-107) Bicarbonate 29 mmol/L (22-29) Anion Gap 12 (4-17) Albumin 4.4 GM/DL (3.4-4.8 ) Calcium 10.1 mg/dL (8.6-10. 5) Bilirubin,Total 0.4 mg/dL (0-1.2 ) Total Protein 7.3 GM/DL (6.2-8.2 ) Ag Ratio 1.5 Ast 17 U/L (0-32) Alk Phos 96 U/L (35-104) Alt 24 U/L (0-33) Estimated GFR Creatinine 65 ML/MIN/1.73 M2 1 Lipid Panel 12/29/2022 [facility] Cholesterol, Total 160 mg/dL (<200) Triglyceride 156 mg/dL High (<150) HDL Chol 49 mg/dL (>39) LDL Cholesterol, Calculated 80 mg/dL (0-130) Non HDL Cholesterol (Calc) 111 mg/dL (<160) Urinalysis Complete 12/29/2022 [facility] Appear/Color LIGHT YELLOW 2 SP. [place] 1.008 (1.002-1 .030) Urine PH 7.0 (5.0-8.0 ) Urine Albumin NEGATIVE (Neg) Urine Glucose NEGATIVE (Neg) Urine Ketones NEGATIVE (Neg) Urine Bilirubin NEGATIVE (Neg) Urine Hemoglobin NEGATIVE (Neg) Urine Nitrite NEGATIVE (Neg) Urine Leukocyte NEGATIVE (Neg) Urobilinogen NORMAL mg/dL (Norm) Urine WBCs <1 /HPF (0-5) Urine RBCs <1 /HPF (0-3) Mucus SLIGHT /LPF Squamous Epith 2 /HPF (0-8) Hyaline Cast 1 LPF (0-2) Complete Abc With Diff 12/29/2022 [facility] WBC 7.3 K/MM3 (4.0-11. 0) RBC 4.71 M/MM3 (4.20-5. 40) HGB 13.1 GM/DL (11.7-15 .5) HCT 40.8 % (35.7-45 .8) MCV 86.6 FL (80.0-10 0.0) MCH 27.8 pg (27.0-34 .0) MCHC 32.1 g/dL Low (33.0-37 .0) PLT 231 K/MM3 (150-460 ) RDW-SD 45.1 FL (<47.0) MPV 10.5 FL (9.4-12. 4) Automated NRBC 0.0 #/100WBC'S Abs. NRBC 0.0 K/MM3 Neut # 4.9 K/MM3 (1.3-7.0 ) Lymph # 1.7 K/MM3 (0.8-3.1 ) [place]# 0.4 K/MM3 (0.4-0.9 ) Eo # 0.3 K/MM3 (0.0-0.4 ) Baso # 0.0 K/MM3 (0.0-0.1 ) Abs. Imm Gran 0.0 K/MM3 Neut 66.2 % (44-76) Lymph 23.8 % (15-43) Monocyte 5.6 % (4.5-10. 5) Eo 3.6 % (0-6) Baso 0.5 % (0-2) Imm Gran 0.3 % Laboratory test finding 12/29/2022 [facility] TSH With Reflex To FT4 2.90 uIU/mL (0.4-4.2 ) 25Oh Vitamin D 30.0 NG/ML (20-50 ) Urinary Microalbumin 12/29/2022 [facility] Micro-Albumin <12.0 mg/L (<20) 3 Malb/Creat Ratio Unable to calcul <SEE NOTE> MG/GM (0-20) 4 Urine Creat For Micro Albumin 21.5 mg/dL Laboratory test finding 10/02/2022 Inhouse Hemoglobin A1c 6.9% Glucose Fingerstick 169 1 Creatinine based est imated glomerular filtration (eGFR) in adults is calculated using the [employer] recommended 2020 CKD-EPI equation. Estimates GFR from serum creatinine, age and sex. 2 CLEAR 3 The urine microalbum in test is designed to monitor renal function. When screening for Bence Graham proteinuria, urine electrophoresis is recommended. 4 Unable to calculate Procedures Date Code Description Status 05/08/2024 NSHOWOFF No Show Office Visit Complet ed Medical Devices Description No Information Available Encounters Type Date Location Provider Dx Diagnosis Office Visit 01/21/2024 8:45a Main Office Freddy Kat M.D. E11.9 Type 2 diabetes mellitus without complications E66.9 Obesity, unspecified Assessments Date Code Description Provider 01/21/2024 E11.9 Type 2 diabetes mellitus without complications Freddy Kat M.D. 01/21/2024 E66.9 Obesity Freddy calvo M.D. Plan of Treatment No Information Available Functional Status Description No Information Available Mental Status Description No Information Available Referrals Description No Information Available
== END 2024-07-10 14:16 | disposition home or self-care (01) ==
LOC: HO.HKAS 13:19
PROVIDERS: PCP Family Medicine; Visit Provider Internal Medicine Nephrology
DX: I10 Essential (primary) hypertension (principal)
CPT/HCPCS: 99214

== ENCOUNTER 2024-07-10 13:19 | Outpatient (REF) | payer OTHER, SELFPAY ==
--- OUTSIDE RECORDS SUMMARY | 2024-07-10 17:16 | XMS_ITS | Encounter Summary ---
Author Organization [facility] Address [address] [place] [address] Care Team Providers Care Co Founder And Cto Name Role Phone Germán Conte MD Primary Care Provider [phone] Encounter Details Date Type Department Care Team (Late st Contact Info) Description 12/16/2018 Scanned Document [facility] RAD ONC SCAN Provider, Amanda, [address] [place] [address] Social History Tobacco Use Types Packs/Day Years [...] on filedocumented in this encounter Care Teams Co Founder And Cto Relationship Specialty Start Date End Date Germán Conte MD [address] [place] [address] PCP - General Psychiatry, General 08/13/18 documented as of this encounter
--- OUTSIDE RECORDS SUMMARY | 2024-07-10 17:16 | XMS_ITS | Continuity of Care Document ---
Author Organization [facility] [address] [place] [address] Phone [phone] Care Team Providers Care Veterinary Science Teacher Name Role Phone Germán Conte M.D. Care Team Information Receiv er [phone] Problems Active Problems Provider Date Type 2 [...] e11.9 150units E11.9 Freddy Kat M.D. 11/09/2022 Wmlayzofk04fy Tablets Take 1 Tablet Twice A Day 180tabs Freddy Kat M.D. 04/24/2022 Metformin [id number] Tablets Take 1 Tablet By Mouth Twice A Day 180tabs Freddy Kat M.D. 12/08/2021 Potassium Chloride AX17Jsw Tablets ER Take 1 Tablet (10 Meq Total) By Mouth 1 (One) Time Each Day DO Not Crush, Arnav Sawyer Daniel MD [id number] Caps DR Part Take 3 Capsules By Mouth 4 Times A Day Unknown Xxraslddlh70.5mg Tablets Take 1 Tab By Mouth In The Morning And 2 Tablets In The Evening. Unknown Uuebmblswc98dk Capsules DR Take 1 Capsule By Mouth Daily Every Morning X90 Days. Take 30Min Before Breakfas Unknown Xnekhtpgfu1pv Tablets Take 1 Tablet (2 MG Total) By Mouth In The Morning And 1 Tablet (2 MG Total) In Binh José MD Losartan Zosbemfyt578bw Tablets Take 1 Tablet By Mouth 1 [...] Glucose Fingerstick 153 Comprehensive Metabolic Panl 12/29/2022 [facility] Glucose 159 mg/dL High (70-99) [...] 65 ML/MIN/1.73 M2 1 Lipid Panel 12/29/2022 [facility] Cholesterol, Total 160 mg/dL (<200) Triglyceride 156 mg/dL High (<150) HDL Chol 49 mg/dL (>39) LDL Cholesterol, Calculated 80 mg/dL (0-130) Non HDL Cholesterol (Calc) 111 mg/dL (<160) Urinalysis Complete 12/29/2022 [facility] Appear/Color LIGHT YELLOW 2 SP. [place] 1.008 (1.002-1 .030) Urine PH 7.0 (5.0-8.0 [...] LPF (0-2) Complete Abc With Diff 12/29/2022 [facility] WBC 7.3 K/MM3 (4.0-11. 0) [...] ) Lymph # 1.7 K/MM3 (0.8-3.1 ) [place]# 0.4 K/MM3 (0.4-0.9 ) Eo # 0.3 K/MM3 (0.0-0.4 ) Baso # 0.0 K/MM3 (0.0-0.1 ) Abs. Imm Gran 0.0 K/MM3 Neut 66.2 % (44-76) Lymph 23.8 % (15-43) Monocyte 5.6 % (4.5-10. 5) Eo 3.6 % (0-6) Baso 0.5 % (0-2) Imm Gran 0.3 % Laboratory test finding 12/29/2022 [facility] TSH With Reflex To FT4 2.90 uIU/mL (0.4-4.2 ) 25Oh Vitamin D 30.0 NG/ML (20-50 ) Urinary Microalbumin 12/29/2022 [facility] Micro-Albumin <12.0 mg/L (<20) 3 [...]
--- OUTSIDE RECORDS SUMMARY | 2024-07-10 17:16 | XMS_ITS | Encounter Summary ---
Author Organization [facility] Address [address] [place] [address] Care Team Providers Care Film Developing Machine Operator Name Role Phone Germán Conte MD Primary Care Provider Encounter Details Date Type Department Care Team (Late st Contact Info) Description 12/09/2020 Scanned Document [facility] Radiation Oncology [address] [place] [address] Provider, MD Amanda [address] [place] [address] Social History Tobacco Use Types Packs/Day Years [...] on filedocumented in this encounter Care Teams Film Developing Machine Operator Relationship Specialty Start Date End Date Germán Conte MD [address] [place] [address] PCP - General Psychiatry, General 08/13/18 documented as of this encounter
--- OUTSIDE RECORDS SUMMARY | 2024-07-10 17:16 | XMS_ITS | Encounter Summary ---
Author Organization [facility] Address [address] [place] [address] Care Team Providers Care Territory Outside Sales Manager Name Role Phone Germán Conte MD Primary Care Provider [phone] Encounter Details Date Type Department Care Team (Late st Contact Info) Description 06/10/2019 Scanned Document [facility] Surgical Oncology [place] [address] [facility] [address] [place] [address] Gregorio Parikh MD [address] [facility] [address] [place] [address] Social History Tobacco Use Types Packs/Day Years [...] on filedocumented in this encounter Care Teams Territory Outside Sales Manager Relationship Specialty Start Date End Date Germán Conte MD [address] [place] [address] PCP - General Psychiatry, General 08/13/18 documented as of this encounter
--- OUTSIDE RECORDS SUMMARY | 2024-07-10 17:16 | XMS_ITS | Clinical Summary ---
Author Organization [facility] Address [address] [place] [address] Care Team Providers Care Polystyrene Bead Molder Name Role Phone Germán Conte MD Primary Care Provider [phone] Allergies No known active allergies Medications Medication Sig Dispensed Refills Start Date End Date Status vitamin E (E-400) 400 UNIT capsule Take by mouth. Acti ve SUMAtriptan (IMITREX) 50 MG tablet TAKE 1 TAB NEEDED FOR MIGRAINE WITH PLENTY OF WATER, MAY REPEAT IN 2 HOURS IF NEEDED. MAX 3/24 HR 0 05/13/2018 Active pancrelipase (CREON) 8[address]93-[address] Particles 12/19/2014 Active omega-3 [...] Done Comments Hepatitis C Virus Screening 1964 HIV Screening 1977 DTaP/Tdap/Td Vaccines (1 - Tdap) 1983 Pneumococcal Vaccines 50+ (1 of 2 - PCV) 1983 Zoster (Shingles) Vaccine (1 of 2) 1983 Pap Smear (Ages 21-65) 1985 Mammogram 2004 Colonoscopy 2009 Influenza Vaccine 12/13/2023 02/13/2022, , 02/19/2020, Additional history exists COVID-19 Vaccine (2023- season) 2024 01/08/2021, 06/06/2020, 05/16/2020 RSV Vaccine [...] 8:09 AM 09/17/2018 2:04 PM Care Teams Polystyrene Bead Molder Relationship Specialty Start Date End Date Germán Conte MD [address] [place] [address] PCP - General Psychiatry, General 08/13/18
--- OUTSIDE RECORDS SUMMARY | 2024-07-10 17:16 | XMS_ITS | Clinical Summary ---
Author Organization [facility] Address [address] [facility] [address] [place] [address] Phone Care Team Providers Care Cmm Inspector Name Role Phone Germán Conte DO Primary Care Provider [phone] Allergies No known active allergies Medications calcium [...] (QUESTRAN) 4 g packet 3 Active pancrelipase, Zjr-Qcub-Hcyi, (Creon) 84515-75126 units capsule 5 Active bumetanide (BUMEX) 2 [...] mg/dl PVNMA 02/04/2019 us [facility] [id number] LICITED RESULTS Final Result PVNMA from Last 3 Months or Most Recently Relevant to Health Maintenance Insurance AETNA AET[employer] Care Teams Cmm Inspector Relationship Specialty Start Date End Date Germán Conte DO [address] [place] [address] PCP - General 05/24/20
[2024-07-10 18:48] LABS: Anion Gap 12 (12-20); Blood Urea Nitrogen 29 mg/dL (9-16); Calcium 9.1 mg/dL (8.4-10.2); Carbon Dioxide 27 mmol/L (22-29); Chloride 105 mmol/L (96-108); Estimated Glomerular Filt Rate > 60; Potassium 4.1 mmol/L (3.3-5.1); Sodium 140 mmol/L (135-145)
== END 2024-07-10 13:20 | disposition home or self-care (01) ==
LOC: HO.HKASLDS 13:19
PROVIDERS: PCP Family Medicine; Visit Provider Internal Medicine Nephrology
DX: I10 Essential (primary) hypertension (principal)
CPT/HCPCS: 36415; 80051; 82310; 82565; 84520